=== PATIENT | male | born 1995 | race Caucasian/White ===

== ENCOUNTER 2024-05-21 11:14 | Emergency (ER) | payer OTHER, SELFPAY ==
--- NOTE | ~2024-05-21 | XR_ITS ---
EXAMINATION: XR chest 2V DATE: 05/21/2024 11:55 INDICATION: Cough. Shortness of breath. TECHNIQUE: Frontal and lateral views of the chest were obtained. COMPARISON: Chest 2 views 06/09/2016 FINDINGS: There is no pneumonia, pleural effusion, or pneumothorax. The heart size is normal. IMPRESSION: 1. No acute cardiopulmonary disease. Reviewed, dictated and finalized at location A. RPRISE RECORDS ANALYST
[2024-05-21 11:23] VITALS: BP 140/62; PULSE 91; RESP 16; TEMP 36.9; O2SAT 100
--- NOTE | 2024-05-21 11:34 | ED.URI ---
HPI - URI/Sore Throat General Chief Complaint: Upper Respiratory Infection Stated Complaint: Chest Congestion/Breathing Problem/Cough Time Seen by Provider: 05/21/24 11:34 Source: patient Mode of arrival: ambulatory Limitations: no limitations History of Present Illness HPI Narrative: 29-year-old male presents with complaint of cough, chest congestion for 1 week. Reports that he is coughing up green sputum. Shortness of breath with exertion and feels like he cannot take a full breath for the past 2 days. Symptoms started after getting home from [place]. Patient concern for pneumonia. All systems reviewed and negative except as noted above. Related Data Home Medications ?Medication ?Instructions ?Recorded ?Confirmed ?Last Taken ?Type multivitamin (Daily Multi-Vitamin 1 tablet PO DAILY 11/02/23 11/05/23 Unknown History tablet) omega 6-mgr-tsi-fish oil 100 cap PO 11/02/23 11/05/23 Unknown History mg-160 mg-1,000 mg capsule (Fish Oil) Allergies Allergy/AdvReac Type Severity Reaction Status Date / Time No Known Allergies Allergy Unverified 05/21/24 11:27 Review of Systems Review of Systems: CONSTITUTIONAL: Denies fever, chills, or sweats. EYES: Denies visual changes, redness, or discharge. ENT: Reports rhinorrhea, congestion. Denies sore throat, or otalgia. CARDIOVASCULAR: Denies chest pain, palpitations, or edema. RESPIRATORY: reports cough and dyspnea with exertion. GASTROINTESTINAL: Denies abdominal pain, nausea, vomiting, or diarrhea. GENITOURINARY: Denies dysuria or hematuria. SKIN: Denies rash or itching. MUSCULOSKELETAL: Denies back pain, joint pain, or myalgia. NEUROLOGIC: Denies headache, numbness, or weakness. PSYCHIATRIC: Denies anxiety or depression. All other systems reviewed are negative, except as documented in HPI. [facility] Past Medical History Medical History GERD (gastroesophageal reflux disease) Rupture of right Achilles tendon Vertigo Family History Family History Other Depression Hypertension Social History Social History Smoking status: Never smoker Alcohol intake: never Substance use: never Gender identity (if verbalized by the patient): Male Comments At time of signature, agree with nursing past medical, surgical, social and family history. There is no relevant family history pertinent to the presenting complaint. Exam Narrative: GENERAL: This is a well-nourished, well-developed patient, in no apparent distress. HEAD: normocephalic, atraumatic. EYES: PERRL. Sclera clear/white. Vision is grossly intact. EARS: External ears normal, auditory canals clear and without drainage, TMs normal without perforation. Hearing grossly intact. NOSE: External nose normal with no obvious nasal discharge, nares without redness, no rhinorrhea. THROAT: Mucous membranes moist, posterior pharynx clear. NECK: Neck supple, non-tender without lymphadenopathy, masses or thyromegaly. CARDIOVASCULAR: Regular rate and rhythm without murmurs, gallops, or rubs. RESPIRATORY: decreased throughout all lung may. Breath sounds equal bilaterally. No wheezes, rales, or rhonchi. SKIN: warm, Dry, intact with no suspicious lesions or rash, good texture and turgor. NEURO: awake, alert, and oriented to person, place and time. There were no obvious focal neurologic abnormalities. EXTREMITIES: No joint tenderness, effusion, or edema noted. Course Course Level of Care: Express Care Visit Vital Signs Vital signs: Vital Signs Temperature 36.9 C 05/21/24 11:23 Pulse Rate 91 05/21/24 11:23 Respiratory Rate 16 05/21/24 11:23 Blood Pressure 140/62 05/21/24 11:23 Pulse Oximetry 100 05/21/24 11:23 Oxygen Delivery Room Air 05/21/24 11:23 Temperature 36.9 C 05/21/24 11:23 Pulse Rate 91 05/21/24 11:23 Respiratory Rate 16 05/21/24 11:23 Blood Pressure 140/62 05/21/24 11:23 Pulse Oximetry 100 05/21/24 11:23 Oxygen Delivery Room Air 05/21/24 11:23 Reviewed MDM - URI/Sore Throat MDM Narrative Medical decision making narrative: chest x-ray negative for pneumonia. Patient well-appearing, nontoxic. No respiratory distress. Will treat viral URI with albuterol inhaler, prednisone. Recommend follow-up with PCP if symptoms not improving. Patient is aware of diagnosis, understands and agrees to treatment plan. Anticipatory guidance given. Patient agrees to follow-up as directed and is aware of reasons to seek care at the emergency department. Portions of this record may have been created with voice recognition software Differential Diagnosis Differential diagnosis: Likely upper respiratory infection, sinusitis, viral infection and bronchitis Discharge Plan Discharge Clinical Impression: Acute bronchitis Patient Disposition: Home, Self-Care Condition: Stable Instructions: Acute Bronchitis (ED) Additional Instructions: your chest x-ray was negative for pneumonia. take medications as prescribed. Purchase knmj-paw-[id number] Mucinex and take as directed on packaging. Take Tylenol or ibuprofen every 6-8 hours as needed for pain and fever. Drink at least 64 oz of water a day. Follow-up with your primary care physician if symptoms are not improving. Patient Language: [place] Citizen Prescriptions: New benzonatate 200 mg capsule 200 mg PO TID PRN (Reason: cough) Qty: 20 0RF prednisone 20 mg tablet 40 mg PO DAILY 5 Days Qty: 10 0RF (DME) Aerochamber Plus Z Stat Spacer See Rx Instructions .Route Qty: 1 0RF Rx Instructions: As directed albuterol sulfate 90 mcg/actuation HFA aerosol inhaler 2 puff inhalation Q4-6H PRN (Reason: shortness of breath or wheezing) Qty: 8.5 0RF No Action multivitamin [Daily Multi-Vitamin] Tablet 1 tablet PO DAILY Fish Oil 100-160-1,000 mg capsule PO Follow-up/Referrals: UNKNOWN,DOCTOR [Primary Care Provider] - Time of Disposition: 12:16
== END 2024-05-21 12:22 | disposition home or self-care (01) ==
PROVIDERS: Emergency Provider Nurse Practitioner Family
DX: J20.9 Acute bronchitis, unspecified (principal); K21.9 Gastro-esophageal reflux disease without esophagitis
CPT/HCPCS: 71046; 99213; G0463

== ENCOUNTER 2025-01-08 17:32 | Emergency (ER) | payer BC, SELFPAY ==
--- OUTSIDE RECORDS SUMMARY | 2025-01-08 17:34 | XMS_ITS | Clinical Summary ---
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 [employer] PPO [id number] Care Teams Telephone Exchange Operator Relationship Specialty Start Date End Date Maritza Cade MD [address] [place] [address] [place] [phone] PCP - General 06/08/09
--- OUTSIDE RECORDS SUMMARY | 2025-01-08 17:34 | XMS_ITS | Encounter Summary ---
Author Organization [facility] Address [address] [place] [address] Care Team Providers Care Architect Intern Name Role Phone Yara Landrum Primary Care Provider [phone] Encounter Details Date Type Department Care Team (Late st Contact Info) Description 03/13/2024 InMobit Message Enc [facility] Family and Sports Medicine - [place] [address] [place] [address] Yara Landrum APNP [address] [place] [address] Wbc Social History Tobacco Use Types Packs/Day Years Used Date Smoking Tobacco: Never Smokeless Tobacco: Never Alcohol Use Standard Drinks/Week Comments Not Currently 0 (1 standard drink = 0.6 oz pur e alcohol) PHQ-2 Answer Date Recorded Patient Health Questionnaire-2 Score 0 02/22/2023 Sex and Gender Information Value Date Recorded Sex Assigned at Not on file Legal Sex Male 8:06 AM CDT Gender Identity Not on file Sexual Orientation Not on file documented as of this encounter Plan of Treatment Not on file documented as of this encounter Visit Diagnoses Not on filedocumented in this encounter Additional Health Concerns Assessment Noted Time PHQ-9 Depression Total Score: 0 02/23/20 23 11:43 AM CDT documented as of this encounter Care Teams Architect Intern Relationship Specialty Start Date End Date Yara Landrum APNP [address] [place] [address] PCP - General NURSE PRACTITIONER 02/22/23 documented as of this encounter
--- OUTSIDE RECORDS SUMMARY | 2025-01-08 17:34 | XMS_ITS | Encounter Summary ---
Author Organization [facility] Address [address] [place] [address] Care Team Providers Care Chinchilla Machine Operator Name Role Phone Yara Landrum Primary Care Provider [phone] Encounter Details Date Type Department Care Team (Late st Contact Info) Description 08/23/2024 Biofisicat Message Enc [facility] Medical Group Family and Sports Medicine - [place] [address] [place] [address] Yara Landrum APNP [address] [place] [address] Reminder to Schedule Annual Visit Social History Tobacco Use Types Packs/Day Years [...] documented as of this encounter Care Teams Chinchilla Machine Operator Relationship Specialty Start Date End Date Yara Landrum APNP [address] [place] [address] PCP - General NURSE PRACTITIONER 02/22/23 documented as of this encounter
--- OUTSIDE RECORDS SUMMARY | 2025-01-08 17:34 | XMS_ITS | Clinical Summary ---
Author Organization [facility] Address [address] [place] [address] Care Team Providers Care Test Rider Name Role Phone Yara Landrum Primary Care Provider [phone] Allergies No known active allergies Medications cetirizine (ZYRTEC) 10 MG tablet Take 1 tablet (10 mg total) by mouth daily. Active albuterol sulfate HFA 108 (90 Base) MCG/ACT inhalerIndicatio ns:Exercise-immanuel evangelina asthma ([facility]) Inhale 2 puffs into the lungs every 6 (six) hours as needed for Wheezing. 18 g 1 12/26/2024 Active Active Problems Problem Noted Date Diagnosed Date Attention deficit disorder 05/25/2014 Overview (03/05/2024): ADHD Acne 05/25/2014 Overview (03/05/2024): Acne Exercise-induced asthma ([facility]/HCC) 09/20/2013 Overview (03/05/2024): Exercise-induced asthma Encounters Date Type Department Care Team Description 12/26/2024 MyChart Message Enc [facility] Family and Sports Medicine - [place] [place] [phone] Yara Landrum APNP Sports induced asthma from Last 3 Months Immunizations Immunization Administration Dates Next Due Dtap (Acel-Immune) 11/12/2002, 9,1997,1997,1996 Hepatitis B Pediatric 1997,1997,09/1996 Hib (Omni-Hib) 05/25/1998,1997,1997 ,1997 Influenza Adult (Generic) 04/08/2009 MMR (MMRII) 11/12/2002,02/23/1998 Meningococcal (Menactra) 12/06/2011 Polio IPV (Ipol) 11/12/2002,1997, 7 Polio Opv (Generic) 05/25/1998 Tdap (Generic) 08/11/2008 Varicella (Varivax) 09/18/2007,02/23/1998 Family History Medical History Relation Comments [place] Maternal Grandfather Other Paternal Grandmother Ovarian Cancer Paternal Grandmother Relation Status Comments Maternal Grandfather Paternal Grandmother Social History Tobacco Use Types Packs/Day Years Used Date Smoking Tobacco: Never Smokeless Tobacco: Never Tobacco Cessation:Counseling Given: No Alcohol Use Standard Drinks/Week Comments Not Currently 0 (1 standard drink = 0.6 oz pur e alcohol) PHQ-2 Answer Date Recorded Patient Health Questionnaire-2 Score 0 02/22/2023 Sex and Gender Information Value Date Recorded Sex Assigned at Not on file Legal Sex Male 8:06 AM CDT Gender Identity Not on file Sexual Orientation Not on file Last Filed Vital Signs Vital Sign Reading Time Taken Comments Blood Pressure 126/82 03/05/2024 10:50 AM CDT Pulse 97 03/05/2024 10:50 AM CDT Temperature 37.1 C (98.8 F) 03/05/2024 10:50 AM CDT Respiratory Rate 19 03/05/2024 10:50 AM CDT Oxygen Saturation 99% 03/05/2024 10:50 AM CDT Inhaled Oxygen Concentration - - Weight 81.6 kg (180 lb) 01/22/2024 9:41 AM CDT Height 175.3 cm (5' 9) 03/05/2024 10:50 AM CDT Body Mass Index 26.58 01/22/2024 9:41 AM CDT Plan of Treatment Health Maintenance Due Date Last Done Comments Hepatitis C 2015 Pneumococcal Vaccine: Pediatrics (0 to 5 Years) and At-Risk Patients (6 to 49 Years) (1 of 2 - PCV) 02/09/2016 DTaP, Tdap and Td Vaccines (7 - Td or Tdap) 08/11/2018 08/11/2008, 11/12/2002, 05/25/1998, Additional history exists HPV Vaccines (1 - 3-dose SCDM series) 02/09/2024 Annual Physical 02/23/2024 02/22/2023 PHQ-2 (Physician Pall Mall) 05/07/2024 02/22/2023 COVID-19 Vaccine ( season) 2025 Hepatitis B Vaccines Completed 1997, 1997, 1997 Meningococcal Vaccine Aged Out 12/06/2011 No gilberto abiel eligible based on patient's age to complete this topic Meningococcal B Vaccine Aged Out No l onger eligible based on patient's age to complete this topic RSV Immunizations Under 20 Months Aged Out No longer eligible based on patient's age to complete this topic Insurance [employer] Care Teams Test Rider Relationship Specialty Start Date End Date Yara Landrum APNP [address] [place] [address] PCP - General NURSE PRACTITIONER 02/22/23
--- OUTSIDE RECORDS SUMMARY | 2025-01-08 17:34 | XMS_ITS | Encounter Summary ---
Author Organization [facility] Address [address] [place] [address] Care Team Providers Care Washhouse Worker Name Role Phone Yara Landrum Primary Care Provider [phone] Encounter Details Date Type Department Care Team (Late st Contact Info) Description 05/20/2024 [employer]t Message Enc [facility] Medical Group Family and Sports Medicine - [place] [address] [place] [address] Yara Landrum APNP [address] [place] [address] Symptoms Social History Tobacco Use Types Packs/Day Years [...] documented as of this encounter Care Teams Washhouse Worker Relationship Specialty Start Date End Date Yaar Landrum APNP [address] [place] [address] PCP - General NURSE PRACTITIONER 02/22/23 documented as of this encounter
--- OUTSIDE RECORDS SUMMARY | 2025-01-08 17:34 | XMS_ITS | Encounter Summary ---
Author Organization [facility] Address [address] [place] [address] Care Team Providers Care News Agent Name Role Phone Yara Landrum Primary Care Provider [phone] Encounter Details Date Type Department Care Team (Late st Contact Info) Description 03/21/2024 A.P.Pharmat Message Enc [facility] Medical Group Family and Sports Medicine - [place] [address] [place] [address] Yara Landrum APNP [address] [place] [address] Ct scan Social History Tobacco Use Types Packs/Day Years [...] documented as of this encounter Care Teams News Agent Relationship Specialty Start Date End Date Yara Landrum APNP [address] [place] [address] PCP - General NURSE PRACTITIONER 02/22/23 documented as of this encounter
--- OUTSIDE RECORDS SUMMARY | 2025-01-08 17:34 | XMS_ITS | Clinical Summary ---
Author Organization [facility] [employer] Address [address] [place] [address] Care Team Providers Care Car Painter Name Role Phone Maritza Cade MD Primary Care Provider [phone] Source Comments [facility] [employer],non-owned Affiliates and Associated Physician Practices is amultiple site organization consisting of ambulatory clinics and hospital sitesin [place], [place], [place] and [place]. This disclosure is being madepursuant to the Care Everywhere program and may not contain all information available regarding this patient. Last updated 18.[facility] [employer] Allergies No known active allergies Medications * Be aware that medications may not be up to date on this document. Alwaysverify current medications with the patient. montelukast (SINGULAIR) 10 MG tablet Take 1 (one) tablet by mouth once daily 30 tablet 1 09/01/2020 Active Active Problems No known active problems Social History Tobacco Use Types Packs/Day Years Used Date Smoking Tobacco: Never Smokeless Tobacco: Never Alcohol Use Standard Drinks/Week Comments No 0 (1 standard drink = 0.6 oz pur e alcohol) Sex and Gender Information Value Date Recorded Sex Assigned at Not on file Legal Sex Male 1:30 PM MECHANICAL INTEGRITY SPECIALIST Gender Identity Not on file Sexual Orientation Not on file Last Filed Vital Signs Vital Sign Reading Time Taken Comments Blood Pressure 122/70 09/01/2020 5:38 PM CDT Pulse 62 09/01/2020 5:38 PM CDT Temperature 36.7 C (98 F) 09/01/2020 5:38 PM CDT Respiratory Rate 20 09/01/2020 5:38 PM CDT Oxygen Saturation 98% 05/29/2017 9:53 AM MECHANICAL INTEGRITY SPECIALIST Inhaled Oxygen Concentration - - Weight 77.1 kg (170 lb) 05/29/2017 9:53 AM MECHANICAL INTEGRITY SPECIALIST Height 175.3 cm (5' 9) 05/29/2017 9:53 AM MECHANICAL INTEGRITY SPECIALIST Body Mass Index 25.1 05/29/2017 9:53 AM MECHANICAL INTEGRITY SPECIALIST Plan of Treatment Health Maintenance Due Date Last Done Comments HIV SCREENING 02/09/2012 HEPATITIS C SCREENING 02/04/2015 DTAP/TDAP/TD VACCINES (1 - Tdap) 02/09/2016 HEPATITIS B VACCINE (1 of 3 - 19+ 3-dose series) 02/09/2016 HPV VACCINE (1 - 3-dose SCDM series) 02/09/2024 DEPRESSION SCREENING 05/07/2024 COVID-19 VACCINE (1 - 2023-2 5 season) 2025 INFLUENZA VACCINE (#1) 2025 04/08/2009 ZOSTER VACCINE (1 of 2) 2047 HIB VACCINE Aged Out No longer eligi ble based on patient's age to complete this topic MENINGOCOCCAL (Group B) VACC INE SHARED DECISION-MAKING Aged Out No longer eligibl e based on patient's age to complete this topic MENINGOCOCCAL GROUPS A/C/Y/W VACCINE Aged Out No longer eligible b ased on patient's age to complete this topic PNEUMOCOCCAL VACCINE Aged Out No long er eligible based on patient's age to complete [place] [id number] [facility] Care Teams Car Painter Relationship Specialty Start Date End Date Maritza Cade MD [address] [place] [address] PCP - General 09/18/11
--- OUTSIDE RECORDS SUMMARY | 2025-01-08 17:41 | XMS_ITS | Encounter Summary ---
Author Organization [facility] Address [address] [place] [address] Care Team Providers Care Home Office Claim Specialist Name Role Phone Yara Landrum Primary Care Provider [phone] Encounter Details Date Type Department Care Team (Late st Contact Info) Description 08/07/2024 Epomt Message Enc [facility] Medical Group Family and Sports Medicine - [place] [address] [place] [address] Yara Landrum APNP [address] [place] [address] Yearly Health Maintenance Visit Due Social History Tobacco Use Types Packs/Day Years [...] documented as of this encounter Care Teams Home Office Claim Specialist Relationship Specialty Start Date End Date Yara Landrum APNP [address] [place] [address] PCP - General NURSE PRACTITIONER 02/22/23 documented as of this encounter
[2025-01-08 17:50] VITALS: BP 152/56; PULSE 90; RESP 18; TEMP 36.9; O2SAT 99
--- NOTE | 2025-01-08 18:09 | ED_ITS ---
HPI - URI/Sore Throat General Chief Complaint: Upper Respiratory Infection Stated Complaint: Shortness of Breath/Cough Time Seen by Provider: 01/08/25 18:11 Source: patient, RN notes reviewed and old records reviewed Mode of arrival: ambulatory Limitations: no limitations History of Present Illness HPI Narrative: 29-year-old male presents to the [facility] with complaints of cough and shortness of breath for over week. Reports that he does take daily Zyrtec. Has been using his albuterol inhaler. Reports also taking Mucinex. Related Data Home Medications ?Medication ?Instructions ?Recorded ?Confirmed ?Last Taken ?Type multivitamin (Daily Multi-Vitamin 1 tablet PO DAILY 11/05/23 Unknown History tablet) omega 4-rzf-oys-fish oil 100 cap PO 11/02/23 11/05/23 Unknown History mg-160 mg-1,000 mg capsule (Fish Oil) Allergies Allergy/AdvReac Type Severity Reaction Status Date / Time No Known Allergies Allergy Unverified 01/08/25 17:38 Review of Systems Review of Systems: All systems reviewed & are unremarkable except as noted in HPI and below Constitutional: Constitutional: Reports no additional constitutional complaints ENT: Reports system reviewed and no additional complaints, except as documented Cardiovascular: Cardiovascular: Reports no additional cardiovascular complaints, Denies chest pain and Denies dyspnea Respiratory: Respiratory: Reports as per HPI, Denies chest congestion, Reports cough and Reports dyspnea Musculoskeletal: Musculoskeletal: Reports no additional musculoskeletal complaints Integumentary/Breasts: Skin/Breast: Reports system reviewed and no additional complaints, except as docu [facility] Past Medical History Medical History GERD (gastroesophageal reflux disease) Rupture of right Achilles tendon Vertigo Family History Family History Other Depression Hypertension Social History Social History Smoking status: Never smoker Alcohol intake: never Substance use: never Gender identity (if verbalized by the patient): Male Comments At the time of my signature, I reviewed and agree with the nursing past medical, surgical, social, and family history. There is no relevant family history pertinent to the patient complaint. Exam Const: General: cooperative, healthy appearing, comfortable, no acute distress, well developed, alert and well nourished Nutritional Appearance: well nourished Orientation/consciousness: patient oriented x3 Limitations: no limitations HENMT: Head: normal to inspection Ears: hearing grossly normal bilaterally, external ears normal, TM's normal bilaterally, EAC's normal, mastoids normal and no periauricular adenopathy Mouth: Yes Normal oral and palatal mucosa present, Yes lip normal, Yes tongue normal and Yes moist mucous membranes Throat: posterior oropharynx normal, uvula midline and no uvular edema Eyes: General: appearance normal, both eyes and all related structures Alignment and Position: alignment normal Neck: Neck: normal visual inspection, full ROM, no lymphadenopathy and no meningeal signs Chest: Chest palpation & inspection: normal inspection of the chest Resp: Effort & Inspection: normal respiratory effort and able to speak in complete sentences Auscultation: clear to auscultation bilaterally, no crackles, no rales, no rhonchi and no wheezes Cardio: Rate: regular rate Skin: General skin exam: normal color and no rashes or lesions noted Neuro: General: patient oriented x3, gait normal, moves all extremities and no meningeal signs Cognition (Neuro): normal cognition Speech: normal speech Gait exam (Neuro): Normal gait present Extrem: General: normal to inspection, full ROM, capillary refill normal and normal gait Psych: Appearance: grossly normal and well kempt Mental Status: mental status grossly normal Speech and movement: Normal speech and movement present and Clear speech present Affect: normal affect Attitude: cooperative Course Course Level of Care: Express Care Visit Vital Signs Vital signs: Vital Signs Temperature 98.4 F 01/08/25 17:50 Pulse Rate 90 01/08/25 17:50 Respiratory Rate 18 01/08/25 17:50 Blood Pressure 152/56 H 01/08/25 17:50 Pulse Oximetry 99 01/08/25 17:50 Oxygen Delivery Room Air 01/08/25 17:50 Temperature 98.4 F 01/08/25 17:50 Pulse Rate 90 01/08/25 17:50 Respiratory Rate 18 01/08/25 17:50 Blood Pressure 152/56 H 01/08/25 17:50 Pulse Oximetry 99 01/08/25 17:50 Oxygen Delivery Room Air 01/08/25 17:50 Reviewed MDM - URI/Sore Throat MDM Narrative Medical decision making narrative: Patient sitting in exam room. Patient is nontoxic, vitals stable. Patient presents with cough. In symptoms for over week. Patient has a history of asthma Reports having enough albuterol. Patient appropriate for outpatient treatment for bronchitis with close follow-up Discharge instructions reviewed with patient, as well as provided in writing per nursing staff. The instructions also include specific and strict return/GO TO THE ER as well as f/u information. All questions have been answered, and the patient deny any further questions with discharge and discharge plan. Some parts of this dictation were generated by voice recognition software and may contain typographical and/or grammatical inaccuracies. Differential Diagnosis Differential diagnosis: Likely upper respiratory infection, otitis media, sinusitis, viral infection, bronchitis, influenza and pharyngitis Critical Care Time Critical Care Time Critical Care Time: No Discharge Plan Discharge Clinical Impression: Bronchitis Patient Disposition: Home Condition: Stable Instructions: Antibiotic Form, Acute Bronchitis (ED) Additional Instructions: Today your blood pressure was 152/56. Is recommended you follow-up with primary care provider within 2 weeks to have this rechecked It is very important to treat your symptoms. Drink plenty of water, Gatorade, Pedialyte, ice pops or Jell-O. -Alternate Tylenol and Motrin per package directions for fever or pain. You can alternate every 4 hours -Antihistamine medication such as Zyrtec/Claritin/Elysia during the day can help improve symptoms. -You can also use Mucinex. Be sure to drink plenty of water with this medication at least 8 ounces with every dose and it is important to drink 8 to 10 glasses of water per day. Water is a natural decongestant -Eat and drink things that are easy to swallow, like tea or soup, or popsicles. -Oral rinses such as: Salt water gargles and/or may use topical anesthetic (eg. Chloraseptic spray) or lozenges to relieve dryness or throat pain). -Frequent hand washing or hand manager assurance is one of the best ways to prevent spread of infection. -Using a vaporizer or humidifier at night will also help thin secretions and help with coughing up phlegm. -Follow up with primary care provider in 7-10 days if condition is not improving - For new or worsening symptoms go directly to the nearest ER Patient Language: Polish Prescriptions: New doxycycline monohydrate 100 mg tablet 100 mg PO BID Qty: 14 0RF prednisone 50 mg tablet 50 mg PO DAILY Qty: 5 0RF No Action (DME) Aerochamber Plus Z Stat Spacer See Rx Instructions .Route Qty: 1 0RF Rx Instructions: As directed albuterol sulfate 90 mcg/actuation HFA aerosol inhaler 2 puff inhalation Q4-6H PRN (Reason: shortness of breath or wheezing) Qty: 8.5 0RF multivitamin [Daily Multi-Vitamin] Tablet 1 tablet PO DAILY Fish Oil 100-160-1,000 mg capsule PO Follow-up/Referrals: Lucita,Yara Molina NP [Primary Care Provider, Unknown] - 2 Weeks Clinical Impression: Bronchitis Stand Alone Forms: Work/School Release IP Time of Disposition: 18:16
== END 2025-01-08 18:20 | disposition home or self-care (01) ==
PROVIDERS: Emergency Provider Nurse Practitioner; PCP Nurse Practitioner
DX: J40 Bronchitis, not specified as acute or chronic (principal)
CPT/HCPCS: 99213; G0463

== ENCOUNTER 2025-02-24 01:03 | Day surgery (SDC) | payer BC, SELFPAY ==
[2025-02-17 08:37] VITALS: BMI 25.9
[2025-02-24 07:17] VITALS: BP 141/71; PULSE 65; RESP 18; TEMP 36.4; O2SAT 100; BMI 26.5
[2025-02-24] MEDS: LACTATED RINGERS 1,000 ML 150 ML IV CONT (07:30)
--- NOTE | 2025-02-24 07:32 | WPDANESEPPF ---
Anes - Initial Pre Proc Eval Procedure: Operation Date: 02/24/25 08:30 Proposed Procedures p Esophagogastroduodenoscopy - Abhijeet Suarez MD Date/Time: 02/24/25 07:32 Surgeon: Abhijeet Suarez MD Pre Op Diagnosis: Gastro-esophageal reflux disease without esophagit Patient Data Age: 30 Gender: M Height: 1.75 m Weight: 81.6 kg Last Vital Signs Temp 97.5 F L 02/24/25 07:17 Pulse 65 02/24/25 07:17 Resp 18 02/24/25 07:17 BP 141/71 H 02/24/25 07:17 Pulse Ox 100 02/24/25 07:17 O2 Del Method Room Air 02/24/25 07:17 Allergies Allergy/AdvReac Type Severity Reaction Status Date / Time No Known Allergies Allergy Verified 02/24/25 07:14 Home Medications ?Medication ?Instructions ?Recorded ?Confirmed ?Type multivitamin (Daily Multi-Vitamin 1 tablet PO DAILY 11/02/23 02/24/25 History tablet) omega 3-cfu-xxf-fish oil 100 1 cap PO DAILY 11/02/23 02/24/25 History mg-160 mg-1,000 mg capsule (Fish Oil) albuterol sulfate 90 mcg/actuation 2 puff inhalation Q4-6H PRN 05/21/24 02/24/25 Rx aerosol inhaler shortness of breath or wheezing #8.5 grams cetirizine 10 mg tablet (24Hour 10 mg PO DAILY 02/17/25 02/24/25 History Allergy) Patient hx anesthesia problems: none Family hx anesthesia problems: none Results Review: All pre-operative results and documents have been reviewed as part of the pre-operative evaluation. [facility] Past Medical History Medical History Rupture of right Achilles tendon GERD (gastroesophageal reflux disease) Vertigo Family History Family History Other Depression Hypertension Social History Social History Smoking status: Never smoker Alcohol intake: never Substance use: never Substance use type: does not use Living arrangements: with family Gender identity (if verbalized by the patient): Male Spiritual care concerns: No Anes - Eval Final PreProcedure Day of Procedure 02/24/25 07:32 Patient weight: normal Lungs: normal air movement Airway: Mallampati scale class II Neurological: alert and oriented Last oral intake: >/= 8 hours ASA classification: II Emergent: no Anesthetic plan: proceed Anesthesia type and monitoring: general GIVS and standard monitoring Results Review: All pre-operative results and documents have been reviewed as part of the pre-operative evaluation. GERD, exercise induced asthma, stable of recent. Active w workouts, no cp or sob. Informed Consent: The patient's anesthetic plan and its attendant risks and benefits were discussed with the patient/family/POA. Questions were solicited and answers provided to the satisfaction of the patient/family/POA.
--- NOTE | 2025-02-24 08:25 | WPDHPUPDATE1 ---
History and Physical Update Update Date/Time: 02/24/25 08:25 History and Physical has been reviewed, including an updated exam of the patient. There are NO changes in the patient's condition. Risks, benefits, and alternatives have been discussed and questions answered. Patient agrees to proceed with procedure.
--- NOTE | 2025-02-24 08:29 | S_PTH ---
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
[2025-02-24 08:35] VITALS: BP 99/45; PULSE 66; RESP 24; O2SAT 100
[2025-02-24 08:45] VITALS: BP 101/39; PULSE 61; RESP 17; O2SAT 99
[2025-02-24 08:55] VITALS: BP 101/41; PULSE 63; RESP 21; O2SAT 100
== END 2025-02-24 09:02 | disposition home or self-care (01) ==
PROVIDERS: Referring Provider Nurse Practitioner Family; Visit Provider Internal Medicine Gastroenterology
PROC: 0DJ08ZZ Inspection of Upper Intestinal Tract, Via Natural or Artificial Opening Endoscopic (ICD-10-PCS; principal; 2025-02-24 08:30)
DX: K21.00 Gastro-esophageal reflux disease with esophagitis, without bleeding (principal); B00.89 Other herpesviral infection
CPT/HCPCS: 43239; 88305; 88312; 88313; 88342; J2003; J2704; J7120